=== PATIENT | male | born 1985 | race Caucasian/White ===

== ENCOUNTER 2023-07-02 11:37 | Emergency (ER) | payer SELFPAY ==
[~2023-07-02] VITALS: Ht 170.2 cm; Wt 54.0 kg
[2023-07-02 11:38] VITALS: TEMP 98.3; O2SAT 97
[2023-07-02 11:56] VITALS: BP 166/104; PULSE 72; RESP 21
[2023-07-02] MEDS: TETANUS, DIPHTHERIA, PERTUSSIS VAC/PF 0.5ML (>10YR OLD) IM ONE (12:02)
[2023-07-02] MEDS: ONDANSETRON HCL 4MG/2ML INJ IV STA (12:02)
[2023-07-02] MEDS: SODIUM CHLORIDE 0.9% 1,000 ML IV ONE (12:02)
[2023-07-02] MEDS: FENTANYL CITRATE/PF 50MCG/ML 2ML VIAL IV ONE (12:02)
[2023-07-02] MEDS: CEFAZOLIN 1000MG PREMIX 50 ML IV ONE (12:29)
[2023-07-02 13:20] LABS: CHLORIDE 106 mEq/L (98-107); POTASSIUM 3.2 mEq/L (3.5-5.1); SODIUM 139 mEq/L (136-145)
[2023-07-02 13:21] LABS: CALCIUM 9.7 mg/dL (8.7-10.4); CARBON DIOXIDE 29 mEq/L (21-32)
[2023-07-02 13:26] LABS: GLUCOSE 124 mg/dL (70-105); UREA NITROGEN BLOOD 9 mg/dL (9-23)
[2023-07-02] MEDS: MORPHINE SULFATE 4 MG/ML INJ (FOR IV/IM USE) IV ONE (13:29)
[2023-07-02 13:31] LABS: ETHANOL BLOOD < 10 mg/dL (<10)
[2023-07-02 13:48] LABS: EOSINOPHILS % 2.2 % (0.0-5.0); HEMATOCRIT. 43.1 % (42.0-52.0); HEMOGLOBIN. 14.5 g/dL (14.0-18.0); LYMPHOCYTES % 40.6 % (20.0-50.0); MEAN CORPUSCULAR HEMOGLOBIN 31.2 pg (28.0-32.0); MEAN CORPUSCULAR HGB CONC 33.6 g/dL (31.0-37.0); MEAN CORPUSCULAR VOLUME 92.7 fL (80.0-94.0); MEAN PLATELET VOLUME 8.1 fl (7.4-10.4); MONOCYTES % 11.4 % (2.0-8.0); NEUTROPHILS % 44.8 % (40.0-76.0); PLATELET 291 x1000/uL (130-400); RED BLOOD CELL COUNT 4.65 mill/uL (4.7-6.1); RED CELL DISTRIBUTION WIDTH 15.1 % (11.6-14.6); WHITE BLOOD COUNT 6.9 x1000/uL (4.5-11.0)
[2023-07-02 13:52] LABS: PROTHROMBIN TIME 10.9 sec (9.6-11.0)
== END 2023-07-02 13:05 | disposition short-term general hospital (02) ==
LOC: ER 11:37 → CANBEDREQ 13:26
DX: S51.832A Puncture wound without foreign body of left forearm, initial encounter (principal); G89.11 Acute pain due to trauma; F12.90 Cannabis use, unspecified, uncomplicated; Z98.890 Other specified postprocedural states; W34.09XA Accidental discharge from other specified firearms, initial encounter; Y93.89 Activity, other specified; Y92.89 Other specified places as the place of occurrence of the external cause; Y99.8 Other external cause status
CPT/HCPCS: 80048; 80320; 85025; 85610; 36415; 73090; 90715; 90471; 96365; 96375; 99291; J3010; J0690; J2405; J2270; J7030; G0480

== ENCOUNTER 2023-08-09 11:25 | Emergency (ER) | payer OTHER ==
[~2023-08-09] VITALS: Ht 167.6 cm; Wt 59.0 kg
[2023-08-09 11:27] VITALS: O2SAT 100
[2023-08-09] MEDS: BACITRACIN ZINC OINT UDPKT TOP ONE (11:53)
[2023-08-09] MEDS: LIDOCAINE HCL/PF 1% 10 MG/ML 5ML VIAL INFIL ONE (11:54)
[2023-08-09] MEDS: TETANUS, DIPHTHERIA, PERTUSSIS VAC/PF 0.5ML (>10YR OLD) IM ONE (11:54)
[2023-08-09 13:30] VITALS: BP 144/88; PULSE 100; RESP 16; TEMP 97.9
== END 2023-08-09 14:58 | disposition home or self-care (01) ==
LOC: ER 11:25
DX: S01.91XA Laceration without foreign body of unspecified part of head, initial encounter (principal); F12.10 Cannabis abuse, uncomplicated; R51.9 Headache, unspecified; X58.XXXA Exposure to other specified factors, initial encounter; Y93.89 Activity, other specified; Y92.89 Other specified places as the place of occurrence of the external cause; Y99.8 Other external cause status
CPT/HCPCS: 70450; 12002; 99284; J3490; Z7610 ×3